=== PATIENT | male | born 1995 | race African-American/Black ===

== ENCOUNTER 2023-04-29 10:13 | Emergency (ER) | payer BC ==
[~2023-04-29] VITALS: Ht 170.2 cm; Wt 68.0 kg
[2023-04-29 10:18] VITALS: TEMP 98.5; O2SAT 98
[2023-04-29 10:30] VITALS: BP 140/43; PULSE 97; RESP 18
[2023-04-29] MEDS ORDERED: HYDROCODONE/ACETAMINOPHEN 5/325MG TABLET PO ONE (10:30)
[2023-04-29] MEDS ORDERED: IBUP-2029 MT (12:06)
== END 2023-04-29 14:21 | disposition home or self-care (01) ==
LOC: ER 10:28
DX: S82.402A Unspecified fracture of shaft of left fibula, initial encounter for closed fracture (principal); V29.99XA Rider (driver) (passenger) of other motorcycle injured in unspecified traffic accident, initial encounter; Y93.89 Activity, other specified; Y92.89 Other specified places as the place of occurrence of the external cause; Y99.8 Other external cause status
CPT/HCPCS: 29515; 73562; 73590; 99284

== ENCOUNTER 2023-09-16 19:21 | Emergency (ER) | payer BC ==
[~2023-09-16] VITALS: Ht 170.2 cm; Wt 68.0 kg
[~2023-09-16 19:21] MED LIST: IBUP-2029 MT
[2023-09-16 19:30] VITALS: O2SAT 97
[2023-09-16 20:15] VITALS: BP 134/95; PULSE 68; RESP 18; TEMP 98.3
[2023-09-16] MEDS ORDERED: KETOROLAC 60MG/2ML VIAL IM ONE (20:15)
[2023-09-16] MEDS ORDERED: LIDOCAINE 5% PATCH TOP SCH (20:15)
[2023-09-16] MEDS ORDERED: ACETAMINOPHEN 325MG TABLET PO ONE (20:15)
[2023-09-16] MEDS ORDERED: CYCL25PO15 MT (21:19)
[2023-09-16] MEDS ORDERED: LIDO700A15 TP (21:20)
== END 2023-09-16 21:32 | disposition home or self-care (01) ==
LOC: ER 19:21
DX: S16.1XXA Strain of muscle, fascia and tendon at neck level, initial encounter (principal); V29.99XA Rider (driver) (passenger) of other motorcycle injured in unspecified traffic accident, initial encounter; Y93.89 Activity, other specified; Y92.89 Other specified places as the place of occurrence of the external cause; Y99.8 Other external cause status
CPT/HCPCS: 99283; 96372; J1885

== ENCOUNTER 2024-05-06 10:07 | Emergency (ER) | payer BC ==
[~2024-05-06] VITALS: Ht 177.8 cm; Wt 64.0 kg
[~2024-05-06 10:07] MED LIST changes: +CYCL25PO15 MT; +LIDO700A15 TP
[2024-05-06 10:27] VITALS: O2SAT 97
[2024-05-06] MEDS: ACETAMINOPHEN 325MG TABLET PO NR (11:19)
[2024-05-06 13:37] VITALS: BP 133/67; PULSE 67; RESP 18; TEMP 99.8
== END 2024-05-06 13:39 | disposition home or self-care (01) ==
LOC: ER 10:07
DX: M25.571 Pain in right ankle and joints of right foot (principal); V29.99XA Rider (driver) (passenger) of other motorcycle injured in unspecified traffic accident, initial encounter; Y93.89 Activity, other specified; Y92.89 Other specified places as the place of occurrence of the external cause; Y99.8 Other external cause status
CPT/HCPCS: 73610; 99283